=== PATIENT | male | born 1975 | race Caucasian/White ===

== ENCOUNTER → 2019-08-23 07:32 | Outpatient (CLI) | payer OTHER, SELFPAY ==
[2019-08-21 09:29] LABS: Hematocrit 47.1 % (40-54); Hemoglobin 16.1 g/dL (13.0-16.5); Mean Corp Hgb Conc 34.2 g/dL (32-36); Mean Corpuscular Hgb 33.3 pg (27.0-32.0); Mean Corpuscular Volume 97.3 fL (80-94); Mean Platelet Vol. 8.9 fl (6.2-12.0); Platelet Count 307 K/mm3 (150-450); RBC Distribution Width CV 11.9 % (11.6-14.6); RBC Distribution Width SD 42.4 fl (35.1-43.9); Red Blood Count 4.84 M/mm3 (4.6-6.2); White Blood Count 10.4 K/mm3 (4.4-11.0)
[2019-08-21 09:31] LABS: Color, Urine Yellow (Yellow); Glucose, Dipstick Normal (Normal); Ketone-Dipstick Negative (Negative); Leukocyte Esterase-Dipstick Negative /ul (Negative); Nitrite-Dipstick Negative (Negative); Occult Blood-Urine Negative /ul (Negative); Protein-Dipstick Negative (Negative); Specific Gravity, Urine 1.005 (1.002-1.030); Urine Bilirubin Dipstick Negative (Negative); Urine Clarity Clear (Clear); Urine Urobilinogen Normal (Normal)
[2019-08-21 09:56] LABS: BUN 8 mg/dL (7-18); BUN/Creat Ratio 9.2 RATIO (10-20); Creatinine, Serum 0.87 mg/dL (0.70-1.30); EST Glomerular Filtration Rate 100 mL/min (>60); Est Glom Filt Rate - Afr Amer 121 mL/min (>60); Glucose 97 mg/dL (74-106)
[2019-08-21 09:58] LABS: AST(SGOT) 18 U/L (15-37); Alanine Aminotransfer ALT/SGPT 48 U/L (16-61); Albumin, Serum 3.9 g/dL (3.2-5.0); Alkaline Phosphatase 62 U/L (45-117); Calcium,Total 9.2 mg/dL (8.5-10.1)
[2019-08-21 09:59] LABS: Anion Gap 9 (5-15); Chloride 102 mmol/L (98-107); Cholesterol 170 mg/dL (200); High Density Lipoprotein 36 mg/dL; Potassium 4.4 mmol/L (3.5-5.1); Sodium Level 140 mmol/L (136-145); Triglycerides 128 mg/dL; Very Low Density Lipoprotein 26 mg/dL (5-40)
[2019-08-21 10:51] LABS: ALB/GLOB Ratio 1.1 RATIO (0.9-2.4); Globulin 3.6 g/dL (2.2-4.2); Protein, Total 7.5 g/dL (6.4-8.2)
== END ==
LOC: LAB.FUTURE 07:34 → EMPH 09-23 09:37
PROVIDERS: Visit Provider Student in an Organized Health Care Education/Training Program
DX: Z13.6 Encounter for screening for cardiovascular disorders (principal)
CPT/HCPCS: 36415; 80053; 80061; 81002; 85027

== ENCOUNTER → 2020-08-26 | Outpatient (CLI) | payer OTHER, SELFPAY | END | disposition home or self-care (01) | LOC: LABSPEC 07:52 | DX: L02.211 Cutaneous abscess of abdominal wall (principal) | CPT/HCPCS: 87070; 87077; 87186; 87205 ==

== ENCOUNTER → 2021-08-28 | Outpatient (CLI) | payer OTHER, SELFPAY | END | disposition home or self-care (01) | LOC: LABSPEC 15:31 | PROVIDERS: PCP Student in an Organized Health Care Education/Training Program; Visit Provider Nurse Practitioner Family | DX: L05.91 Pilonidal cyst without abscess (principal) | CPT/HCPCS: 87070; 87077; 87186; 87205 ==

== ENCOUNTER → 2021-10-28 | Outpatient (CLI) | payer OTHER, SELFPAY ==
[2021-10-28 13:23] LABS: Red Blood Count 5.21 M/mm3 (4.6-6.2); White Blood Count 8.9 K/mm3 (4.4-11.0)
[2021-10-28 13:27] LABS: Mean Corpuscular Hgb 34.5 pg (27.0-32.0); Mean Corpuscular Volume 107.5 fL (80-94)
[2021-10-28 13:28] LABS: Mean Corp Hgb Conc 32.1 g/dL (32-36); Mean Platelet Vol. 10.3 fl (6.2-12.0); Platelet Count 236 K/mm3 (150-450); RBC Distribution Width CV 13.8 % (11.6-14.6); RBC Distribution Width SD 55.6 fl (35.1-43.9); Scan Indicated on CBC? Y/N NO
[2021-10-28 13:34] LABS: Glucose 111 mg/dL (74-106)
[2021-10-28 13:35] LABS: ALB/GLOB Ratio 0.7 RATIO (0.9-2.4); AST(SGOT) 35 U/L (15-37); Albumin, Serum 3.4 g/dL (3.2-5.0); Alkaline Phosphatase 61 U/L (45-117); BUN 8 mg/dL (7-18); BUN/Creat Ratio 9.9 RATIO (10-20); Calcium,Total 9.2 mg/dL (8.5-10.1); Creatinine, Serum 0.81 mg/dL (0.70-1.30); EST Glomerular Filtration Rate 108 mL/min (>60); Est Glom Filt Rate - Afr Amer 131 mL/min (>60); Globulin 4.7 g/dL (2.2-4.2); Protein, Total 8.1 g/dL (6.4-8.2)
[2021-10-28 13:36] LABS: Alanine Aminotransfer ALT/SGPT 57 U/L (16-61); Chloride 100 mmol/L (98-107); Cholesterol 175 mg/dL (200); Potassium 4.6 mmol/L (3.5-5.1); Sodium Level 134 mmol/L (136-145); Triglycerides 110 mg/dL; Very Low Density Lipoprotein 22 mg/dL (5-40)
[2021-10-28 13:37] LABS: Anion Gap 6 (5-15); High Density Lipoprotein 45 mg/dL; PSA,Total - Annual Screen 1.27 ng/mL (0.00-4.00)
== END | disposition home or self-care (01) ==
LOC: LABSPEC 11-08 08:48
PROVIDERS: Visit Provider Student in an Organized Health Care Education/Training Program
DX: Z13.6 Encounter for screening for cardiovascular disorders (principal)
CPT/HCPCS: 36415; 80053; 80061; 84153; 85027; G0103

== ENCOUNTER → 2022-12-22 | Outpatient (CLI) | payer OTHER, SELFPAY ==
[2022-12-22 08:13] LABS: Hematocrit 47.9 % (40-54); Hemoglobin 15.9 g/dL (13.0-16.5); Mean Corp Hgb Conc 33.2 g/dL (32-36); Mean Corpuscular Hgb 32.6 pg (27.0-32.0); Mean Corpuscular Volume 98.4 fL (80-94); Mean Platelet Vol. 8.5 fl (6.2-12.0); Platelet Count 305 K/mm3 (150-450); RBC Distribution Width CV 11.8 % (11.6-14.6); RBC Distribution Width SD 42.6 fl (35.1-43.9); Red Blood Count 4.87 M/mm3 (4.6-6.2)
[2022-12-22 08:42] LABS: ALB/GLOB Ratio 0.9 RATIO (0.9-2.4); AST(SGOT) 14 U/L (15-37); Alanine Aminotransfer ALT/SGPT 34 U/L (16-61); Albumin, Serum 3.5 g/dL (3.2-5.0); Alkaline Phosphatase 59 U/L (45-117); Anion Gap 2 (5-15); BUN 9 mg/dL (7-18); BUN/Creat Ratio 12.2 RATIO (10-20); Calcium,Total 8.9 mg/dL (8.5-10.1); Chloride 101 mmol/L (98-107); Cholesterol 170 mg/dL (200); Creatinine, Serum 0.74 mg/dL (0.70-1.30); EST Glomerular Filtration Rate 119 mL/min (>60); Est Glom Filt Rate - Afr Amer 144 mL/min (>60); Globulin 4.1 g/dL (2.2-4.2); Glucose 119 mg/dL (74-106); High Density Lipoprotein 38 mg/dL; PSA,Total - Annual Screen 0.45 ng/mL (0.00-4.00); Protein, Total 7.6 g/dL (6.4-8.2); Sodium Level 135 mmol/L (136-145); Triglycerides 81 mg/dL; Very Low Density Lipoprotein 16 mg/dL (5-40)
[2022-12-22 08:44] LABS: Hemoglobin A1c 6.8 % (3.8-5.6)
[2022-12-23 12:20] LABS: Hepatitis C Antibody Non-Reactive (Nonreactive)
== END | disposition home or self-care (01) ==
PROVIDERS: PCP Student in an Organized Health Care Education/Training Program; Referring Provider Student in an Organized Health Care Education/Training Program; Visit Provider Student in an Organized Health Care Education/Training Program
DX: Z13.6 Encounter for screening for cardiovascular disorders (principal); Z11.59 Encounter for screening for other viral diseases; Z12.5 Encounter for screening for malignant neoplasm of prostate
CPT/HCPCS: 36415; 80053; 80061; 83036; 84153; 85027; 86803; G0103

== ENCOUNTER 2023-02-28 08:18 | Day surgery (SDC) | payer OTHER, SELFPAY ==
[2023-02-28] VITALS (7 sets, daily range): BP systolic 110–134; BP diastolic 71–84; PULSE 83–90; RESP 16–22; TEMP 36.5–36.7; O2SAT 93–98; BMI 39.6
--- NOTE | 2023-02-28 | COLBX_PTH ---
PATHOLOGY RESULTS PATIENT: TRIP DAVIS LOC: EN U#:[id number] AGE/SX: 48/M ROOM: RE02/28/[address]: Dr. Darian Gregorio MD : 1975 BED: DIS: 02/28/2023 SPEC #: [id number] RECD: 02/28/23 13:14 STATUS: [facility] #: [id number] BHARATI: 02/28/23 00:[address]: Darian Gregorio DEPT: SURGICAL PATHOLOGY RECD BY: Kenan Martinez ENTERED: 02/28/23 13:15 SP TYPE: COLON BX OTHR DR: Dr. Franki Young, DO Tissues: Descending colon Cecum, NOS Procedures: Surgery Specimen Level IV HEADER OPERATION: Colonoscopy, polypectomy PRE-OP DIAGNOSIS: Positive Cologuard TISSUE SUBMITTED: A - Descending colon polyps x2, B - Cecum polyp MICROSCOPIC DIAGNOSIS A. Descending colon polyps, biopsy: Fragments of tubular adenoma. B. Cecal polyp, biopsy: Fragments of tubular adenoma. AM:milton 03/03/2023 MICROSCOPIC DESCRIPTION Slides are reviewed. GROSS DESCRIPTION A - Received in fixative is one container labeled with the patient's name and designated descending colon polyps. The specimen consists of three variable sized pieces of monae-pink polyp measuring in aggregate 1.5 x 1.0 x 0.4 cm and 0.3 to 1.0 cm in greatest dimension. The specimen is totally submitted in one cassette. B - Received in fixative is one container labeled with the patient's name and designated cecum. The specimen consists of multiple irregular fragments of light monae soft tissue that in aggregate measure 1.0 x 0.5 x 0.1 cm. The specimen is totally submitted in one cassette. / SJ:milton 02/28/2023 TC:5 [facility]: [id number] x2
[2023-02-28] MEDS: Lactated Ringers 1,000 ML 15 ML IV (08:52)
--- NOTE | 2023-02-28 09:10 | HP.PCM_ITS ---
History and Physical Date of Admission: 02/28/23 Intake Vital Signs 12/20/2311:56 Height 6 ft Weight: 312 lb BMI 42.3 BP 127/78 H Blood Pressure Location Rt brachial Position Sitting Respiration 18 Pulse 109 H Pulse Source Monitor Temp 97.6 F L Temp Source Temporal Pulse Oximetry (%) 93 Oxygen Delivery Method room air Intake Visit Reasons: POSITIVE COLOGUARD Chief Complaint: positive cologuard [employer] Required: No Accompanied by: Is patient in pain?: No Allergies No Known Allergies Allergy (Unverified 12/19/22 13:00) Medications cetirizine 10 mg tablet (Zyrtec) 10 mg PO DAILY 12/19/22 [History Confirmed 12/19/22] multivitamin (One Daily Multivitamin tablet) 1 tab PO DAILY 12/19/22 [History Confirmed 12/19/22] PFSH Medical History (Updated 12/19/22 @ 13:[address] Darian Gregorio MD) Positive colorectal cancer screening using Cologuard test Surgical History (Updated 12/19/22 @ 12:55 by Selena Horan) No history of previous surgery Family History Grandfather Colon cancer Social History (Updated 12/19/22 @ 12:56 by Selena Horan) Smoking Status: Never smoker alcohol intake: never substance use type: does not use HPI HPI HPI: Patient had a positive Cologuard. He reports never having a colonoscopy in the past. He denies any abdominal pain or gross blood in the stool. He has no immediate family history of colon cancer. ROS General General: No weight change, appetite, fatigue, colon cancer, breast cancer or weakness HEENT HEENT: No difficulty swallowing, eye injury, eye surgery, swollen glands or hoarseness Endo Endocrine: No thyroid disease, diabetes mellitus, thyroid cancer, Hair loss, heat intolerance or cold intolerance Skin Skin: No rash or changing moles Breast Breast: No left breast lump, right breast lump, nipple discharge, breast pain, abnormal mammogram, abnormal US or breast enlargement Musc Musculoskeletal: No back problems, arthritis, rheumatoid arthritis, gout or joint pain Cardio Cardiovascular: No murmur, pacemaker, heart disease, atrial fibrillation, high blood pressure, heart attack, heart stent, palpitations, shortness of breat with exertion or chest pain Psych Psychiatric: No depression, anxiety or hearing voices Resp Respiratory: No shortness of breath, Yes sleep apnea, No cough, No COPD, Yes asthma, No emphysema and No wheezing Gastro Gastrointestinal: No abdominal pain, No nausea or vomiting, No diarrhea, No constipation, No blood in stool, No acid reflux, No hemorrhoids, No ulcers, No gallbladder problem and No black,tarry stools Omar Hematologic: No blood thinners, No blood disorders, No bleeding, No anemia and No blood clots Neuro Neurologic: No system reviewed and no additional complaints, except as documented, No as per HPI, No abnormal gait, No abnormal hearing, No abnormal movements, No abnormal speech, No behavioral changes, No burning sensations, No confusion, No convulsions, No disequilibrium, No dizziness, No localized weakness, No frequent falls, No headache(s), No lack of coordination, No loss of vision, No memory loss, No numbness, No other visual disturbances, No radicular pain, No restless legs, No sensory deficit, No syncope, No tingling, No tremor(s), No weakness and No other Exam Const General: cooperative Orientation: alert and oriented x3 HENMT Head: normal to inspection Neck Neck: normal visual inspection and full ROM Chest Chest palpation & inspection: normal inspection of the chest Resp Effort & Inspection: normal respiratory effort Auscultation: clear to auscultation bilaterally Cardio Rate: regular rate Rhythm: regular rhythm GI Inspection: non-distended Palpation: soft and nontender Skin General: no rashes or lesions noted Neuro General: patient alert and patient oriented x3 Extrem General: full ROM Psych Appearance: grossly normal Mental Status: mental status grossly normal Assessment and Plan Assessment and Plan (1) Positive colorectal cancer screening using Cologuard test: Status: Acute Plan: Patient had positive Cologuard and requires colonoscopy. I explained endoscopy in detail to the patient. I explained the risks including but not limited to stroke or heart attack with anesthesia, perforation of the GI tract, bleeding, infection. I explained that any of these could necessitate further emergency surgery. The patient understands and all questions were answered sufficiently. The patient wishes to proceed with procedure. Darian Gregorio MD Pager: [facility] [address] [place] [address], [address] [place] [phone] Office: I have examined the patient and the H&P has been reviewed. There are no clinical changes since date of exam.
--- NOTE | 2023-02-28 09:57 | OP.CCLET_ITS ---
02/28/2023 Franki Young, Re : Colonoscopy procedure for George Reynolds Dear Hannah This procedure was performed on Tuesday, February 28, 2023. My impressions and recommendations are as follows: Impressions : - Three medium polyps in the descending colon and in the cecum, removed with a hot snare. Resected and retrieved. - The examination was otherwise normal on direct and retroflexion views. Recommendations : - Discharge patient to home. - Resume previous diet. - Continue present medications. - Await pathology results. - Repeat colonoscopy in 3 years for surveillance of multiple polyps. My findings are described in the full procedure note, which is enclosed. If I can be of further assistance, please feel free to contact me at Doctor phone number(s): , Work: . Sincerely, Darian Gregorio MD 02/28/2023 9:56:51 AM This report has been signed electronically.
--- NOTE | 2023-02-28 09:57 | OP.COLON_ITS ---
Patient Name: George Reynolds Procedure Date: 02/28/2023 9:17 AM Date of : 1975 Age: 48 Procedure: Colonoscopy Indications: Positive Cologuard test Providers: Darian Gregorio MD Medicines: Monitored Anesthesia Care Patient Profile: This is a 48 year old male. Refer to note in patient chart for documentation of history and physical. Last Colonoscopy: none. The patient's first colonoscopy is today. Complications: No immediate complications. Procedure: Pre-Anesthesia Assessment: - Prior to the procedure, a History and Physical was performed, and patient medications and allergies were reviewed. The patient's tolerance of previous anesthesia was also reviewed. The risks and benefits of the procedure and the sedation options and risks were discussed with the patient. All questions were answered, and informed consent was obtained. Prior Anticoagulants: The patient has taken no anticoagulant or antiplatelet agents. After reviewing the risks and benefits, the patient was deemed in satisfactory condition to undergo the procedure. After I obtained informed consent, the scope was passed under direct vision. Throughout the procedure, the patient's blood pressure, pulse, and oxygen saturations were monitored continuously. The colonoscope was introduced through the anus and advanced to the cecum, identified by appendiceal orifice and ileocecal valve. The colonoscopy was performed without difficulty. The patient tolerated the procedure well. The quality of the bowel preparation was good. The ileocecal valve, appendiceal orifice, and rectum were photographed. Scope In: 9:27:10 AM Scope Withdrawal Time 0 hours 7 minutes 59 seconds Scope Out: 9:43:01 AM Total Procedure Duration Time 0 hours 15 minutes 51 seconds Findings: Three pedunculated polyps were found in the descending colon and cecum. The polyps were medium in size. These polyps were removed with a hot snare. Resection and retrieval were complete. Verification of patient identification for the specimen was done. Estimated blood loss was minimal. The exam was otherwise without abnormality on direct and retroflexion views. Impression: - Three medium polyps in the descending colon and in the cecum, removed with a hot snare. Resected and retrieved. - The examination was otherwise normal on direct and retroflexion views. Recommendation: - Discharge patient to home. - Resume previous diet. - Continue present medications. - Await pathology results. - Repeat colonoscopy in 3 years for surveillance of multiple polyps. Procedure Code(s): --- Professional --- 72980, Colonoscopy, flexible; with removal of tumor(s), polyp(s), or other lesion(s) by snare technique Diagnosis Code(s): --- Professional --- D12.4, Benign neoplasm of descending colon D12.0, Benign neoplasm of cecum R19.5, Other fecal abnormalities CPT copyright 2021 [employer]. All rights reserved. The codes documented in this report are preliminary and upon science interpreter review may be revised to meet current compliance requirements. Darian Gregorio MD 02/28/2023 9:56:51 AM This report has been signed electronically. Number of Addenda: 0 Note Initiated On: 02/28/2023 9:17 AM
== END 2023-02-28 10:38 | disposition home or self-care (01) ==
LOC: EN 08:20 → AC 08:21
PROVIDERS: PCP Student in an Organized Health Care Education/Training Program; Referring Provider Student in an Organized Health Care Education/Training Program; Visit Provider Surgery
PROC: 0DJD8ZZ Inspection of Lower Intestinal Tract, Via Natural or Artificial Opening Endoscopic (ICD-10-PCS; CPT 45378; principal; 2023-02-28 09:25)
DX: R19.5 Other fecal abnormalities (principal); K63.5 Polyp of colon; Z80.0 Family history of malignant neoplasm of digestive organs; D12.0 Benign neoplasm of cecum
CPT/HCPCS: 45385; 88305; J7120; J2405

== ENCOUNTER → 2023-04-05 | Outpatient (CLI) | payer OTHER, SELFPAY ==
[2023-04-05 13:08] LABS: Hemoglobin A1c 6.2 % (3.8-5.6)
== END | disposition home or self-care (01) ==
LOC: LAB.FUTURE 13:05
PROVIDERS: PCP Student in an Organized Health Care Education/Training Program; Visit Provider Student in an Organized Health Care Education/Training Program
DX: E11.69 Type 2 diabetes mellitus with other specified complication (principal)
CPT/HCPCS: 36415; 83036

== ENCOUNTER → 2023-06-22 | Outpatient (CLI) | payer OTHER, SELFPAY ==
[2023-06-22 08:58] LABS: Hematocrit 48.1 % (40-54); Hemoglobin 16.1 g/dL (13.0-16.5); Mean Corp Hgb Conc 33.5 g/dL (32-36); Mean Corpuscular Hgb 32.5 pg (27.0-32.0); Mean Platelet Vol. 8.6 fl (6.2-12.0); Platelet Count 224 K/mm3 (150-450); RBC Distribution Width CV 13.9 % (11.6-14.6); RBC Distribution Width SD 49.9 fl (35.1-43.9); Red Blood Count 4.96 M/mm3 (4.6-6.2); White Blood Count 7.6 K/mm3 (4.4-11.0)
[2023-06-22 09:20] LABS: Protein, Urine (Random) 7.9 mg/dL (<11.9); Protein:Creat Ratio 218 mg/g CRE (0-200)
[2023-06-22 09:38] LABS: Hemoglobin A1c 5.7 % (3.8-5.6)
[2023-06-22 09:54] LABS: BUN 9 mg/dL (7-18); Glucose 93 mg/dL (74-106)
[2023-06-22 09:55] LABS: Albumin, Serum 3.6 g/dL (3.2-5.0); BUN/Creat Ratio 13.6 RATIO (10-20); Calcium,Total 8.4 mg/dL (8.5-10.1); Creatinine, Serum 0.66 mg/dL (0.70-1.30); EST Glomerular Filtration Rate 136 mL/min (>60); Est Glom Filt Rate - Afr Amer 165 mL/min (>60); Globulin 3.6 g/dL (2.2-4.2); Protein, Total 7.2 g/dL (6.4-8.2)
[2023-06-22 09:56] LABS: AST(SGOT) 20 U/L (15-37); Alanine Aminotransfer ALT/SGPT 41 U/L (16-61); Alkaline Phosphatase 57 U/L (45-117); Chloride 100 mmol/L (98-107); Cholesterol 162 mg/dL (200); Potassium 4.1 mmol/L (3.5-5.1); Sodium Level 138 mmol/L (136-145); Triglycerides 115 mg/dL; Very Low Density Lipoprotein 23 mg/dL (5-40)
[2023-06-22 09:57] LABS: Anion Gap 8 (5-15); High Density Lipoprotein 43 mg/dL; Thyroid Stim Hormone (TSH) 1.82 uIU/mL (0.358-3.74)
== END | disposition home or self-care (01) ==
LOC: LABSPEC 08:20
PROVIDERS: PCP Student in an Organized Health Care Education/Training Program; Visit Provider Student in an Organized Health Care Education/Training Program
DX: E11.69 Type 2 diabetes mellitus with other specified complication (principal)
CPT/HCPCS: 36415; 80053; 80061; 82570; 83036; 84156; 84443; 85027

== ENCOUNTER → 2023-12-28 | Outpatient (CLI) | payer OTHER, SELFPAY ==
[2023-12-28 09:40] LABS: Hematocrit 53.6 % (40-54); Mean Corp Hgb Conc 34.7 g/dL (32-36); Mean Corpuscular Hgb 34.3 pg (27.0-32.0); Mean Corpuscular Volume 98.7 fL (80-94); Platelet Count 215 K/mm3 (150-450); RBC Distribution Width CV 13.1 % (11.6-14.6); RBC Distribution Width SD 47.8 fl (35.1-43.9); Red Blood Count 5.43 M/mm3 (4.6-6.2)
[2023-12-28 09:43] LABS: Hemoglobin 18.6 g/dL (13.0-16.5)
[2023-12-28 10:35] LABS: Albumin, Serum 3.7 g/dL (3.2-5.0); BUN 7 mg/dL (7-18); BUN/Creat Ratio 8.8 RATIO (10-20); Calcium,Total 8.3 mg/dL (8.5-10.1); EST Glomerular Filtration Rate 109 mL/min (>60); Est Glom Filt Rate - Afr Amer 132 mL/min (>60); Globulin 3.8 g/dL (2.2-4.2); Glucose 104 mg/dL (74-106); Protein, Total 7.5 g/dL (6.4-8.2)
[2023-12-28 10:36] LABS: AST(SGOT) 40 U/L (15-37)
[2023-12-28 10:37] LABS: Alkaline Phosphatase 56 U/L (45-117); Cholesterol 164 mg/dL (200); Potassium 3.9 mmol/L (3.5-5.1); Sodium Level 135 mmol/L (136-145); Triglycerides 112 mg/dL; Very Low Density Lipoprotein 22 mg/dL (5-40)
[2023-12-28 10:38] LABS: Anion Gap 5 (5-15); Chloride 100 mmol/L (98-107); High Density Lipoprotein 55 mg/dL; PSA,Total - Annual Screen 0.74 ng/mL (0.00-4.00)
[2023-12-28 10:39] LABS: Alanine Aminotransfer ALT/SGPT 65 U/L (16-61)
[2023-12-28 10:41] LABS: Hemoglobin A1c 6.1 % (3.8-5.6)
== END | disposition home or self-care (01) ==
LOC: LAB 09:30
PROVIDERS: PCP Student in an Organized Health Care Education/Training Program; Visit Provider Student in an Organized Health Care Education/Training Program
DX: Z13.6 Encounter for screening for cardiovascular disorders (principal); E11.9 Type 2 diabetes mellitus without complications; Z12.5 Encounter for screening for malignant neoplasm of prostate
CPT/HCPCS: 36415; 80053; 80061; 83036; 84153; 84443; 85027; G0103

== ENCOUNTER → 2024-07-01 | Outpatient (CLI) | payer OTHER, SELFPAY ==
[2024-07-01 08:18] LABS: Hematocrit 47.5 % (40-54); Hemoglobin 16.3 g/dL (13.0-16.5); Mean Corp Hgb Conc 34.3 g/dL (32-36); Mean Corpuscular Hgb 31.8 pg (27.0-32.0); Mean Corpuscular Volume 92.8 fL (80-94); Mean Platelet Vol. 8.8 fl (6.2-12.0); Platelet Count 316 K/mm3 (150-450); RBC Distribution Width CV 12.1 % (11.6-14.6); RBC Distribution Width SD 41.7 fl (35.1-43.9); Red Blood Count 5.12 M/mm3 (4.6-6.2); White Blood Count 10.4 K/mm3 (4.4-11.0)
[2024-07-01 11:03] LABS: Protein, Urine (Random) < 6.0 mg/dL (0.0-12.0); Protein:Creat Ratio UNABLE TO CALCULATE mg/g CRE (0-200)
[2024-07-01 12:06] LABS: Hemoglobin A1c 6.8 % (<=5.6)
[2024-07-01 12:08] LABS: ALB/GLOB Ratio 1.4 RATIO (0.9-2.4); AST(SGOT) 19 U/L (<=37); Alanine Aminotransfer ALT/SGPT 32 U/L (<=46); Albumin, Serum 4.4 g/dL (3.5-5.0); Alkaline Phosphatase 60 U/L (40-129); Anion Gap 11 (5-15); BUN 9 mg/dL (4-19); BUN/Creat Ratio 11.1 RATIO (10-20); Calcium,Total 9.5 mg/dL (7.6-11.0); Carbon Dioxide 25.8 mmol/L (21.0-32.0); Chloride 101 mmol/L (98-108); Cholesterol 187 mg/dL (<=200); Creatinine, Serum 0.78 mg/dL (0.70-1.20); EST Glomerular Filtration Rate 108 (>60); Globulin 3.2 g/dL (2.2-4.2); Glucose 111 mg/dL (70-99); High Density Lipoprotein 35 mg/dL; Low Density Lipoprotein Calc. 131 mg/dL; Potassium 4.3 mmol/L (3.3-5.1); Protein, Total 7.6 g/dL (5.9-8.4); Sodium Level 138 mmol/L (133-145); Total Bilirubin 0.63 mg/dL (0.00-1.30); Triglycerides 105 mg/dL; Very Low Density Lipoprotein 21 mg/dL (5-40); cholesterol:hdl ratio screen 5.39
== END | disposition home or self-care (01) ==
LOC: LAB 07:21
PROVIDERS: PCP Student in an Organized Health Care Education/Training Program; Visit Provider Student in an Organized Health Care Education/Training Program
DX: E11.69 Type 2 diabetes mellitus with other specified complication (principal)
CPT/HCPCS: 36415; 80053; 80061; 82570; 83036; 84156; 84443; 85027

== ENCOUNTER → 2024-12-25 | Outpatient (CLI) | payer OTHER, SELFPAY ==
--- OUTSIDE RECORDS SUMMARY | 2024-12-25 10:53 | XMS RPT_ITS | CCD ---
Author Organization [facility] Inform ion Partnership [facility] Care Team Providers Care Frameman Name Role Phone Dr. Darian Gregorio Attending Provider [phone] Dr. Franki Young Primary Care Provider Dr. Franki Young Referring Provider [phone] Dr. Darian Gregorio Other Provider [phone] Franki Young Attending Unavailable Franki Young Primary Care Unavailable Franki Young Attending Unavailable Franki Young Primary Care Unavailable Thong Kilpatrick Attending Unavailable Franki Young Primary Care Unavailable Allergies Allergy Classification Reported Allergen(s) Allergy Type Date of Onset Reaction(s) Facility (2 sources) Latex Propensity to adverse reactions 4 [facility] (1 source) Latex Drug allergy (disorder) [address] [place] [address] Repository Medications Current Medications Medication Drug Class(es) Dates Sig (Normalized) Sig (Original) [id number] 200 actuat albuterol 0.09 mg/actuat metered dose inhaler (2 sources) beta2-Adrenergic Agonist Start: 02-25-2023 take 1 puff(s) by inhalation every four hours Albuterol Sulfate Active 2 PUFF INHALATION Q4H February 25, 2023 12:00am ascorbic acid 1000 mg extended release oral tablet (2 sources) Vitamin C Start: 02-25-2023 take 1 tablet by mouth once daily Ascorbic Acid (Vitamin C) (C Complex) 1,000 mg tablet extended release Active 1000 MG PO DAILY February 25, 2023 12:00am cetirizine hydrochloride 10 mg oral tablet (2 sources) Histamine-1 Receptor Antagonist Start: 12-19-2022 take 1 tablet by mouth once daily Cetirizine (Zyrtec) 10 mg tablet Active 10 MG PO DAILY December 19, 2022 12:00am cholecalciferol 0.025 mg oral capsule (2 sources) Vitamin D Start: 02-25-2023 take 1 capsule by mouth once daily Cholecalciferol (Vitamin D3) (Vitamin D3) 25 mcg (1,000 unit) capsule Active 25 MCG PO DAILY February 25, 2023 12:00am fluticasone propionate 0.05 mg/actuat metered dose nasal spray (2 sources) Corticosteroid Start: 02-25-2023 Fluticasone Propionate Active 1 SPRAY INTRANASAL DAILY February 25, 2023 12:00am Fluticasone Propion-Salmeterol [Fluticasone Propionate 230 Mcg-Salmeterol 21 Mcg/Actuation Hfa Inhaler] (2 sources) Corticosteroid, beta2-Adrenergic Agonist Start: 02-25-2023 Fluticasone Propion-Salmeterol [Fluticasone Propionate 230 Mcg-Salmeterol 21 Mcg/Actuation Hfa Inhaler] (Fluticasone Propionate 230 Mcg-Salmeterol 21 ) 230-21 mcg/actuation HFA aerosol inhaler Active 2 INH INHALATION TWICE A DAY February 25, 2023 12:00am loratadine 10 mg oral tablet (2 sources) Start: 02-25-2023 take 1 tablet by mouth once daily Loratadine (Allerclear) 10 mg tablet Active 10 MG PO DAILY February 25, 2023 12:00am Multivitamin (One Daily Multivitamin) tablet (2 sources) Start: 12-19-2022 take 1 tablet by mouth once daily Multivitamin (One Daily Multivitamin) tablet Active 1 TABLET PO DAILY December 19, 2022 12:00am rosuvastatin calcium 20 mg oral tablet (2 sources) HMG-CoA Reductase Inhibitor Start: 02-25-2023 take 20 mg by mouth once daily Rosuvastatin Active 20 MG PO DAILY February 25, 2023 12:00am Zinc (2 sources) Start: 02-25-2023 take 10 mg by mouth once daily Zinc Active 10 MG PO DAILY February 25, 2023 12:00am Problems Active Problems Problem Classification Problem Date Documented Da te Episodic/Chronic Diabetes mellitus with complications (1 source) Type 2 diabetes mellitus with other specified complication; Translations: [Type 2 diabetes mellitus with other specified complication] Onset: 07-03-2024 Chronic Other gastrointestinal disorders (2 sources) Stool DNA-based colorectal cancer screening positive; Translations: [Other fecal abnormalities] 12-19-2022 Episodic Other gastrointestinal disorders (2 sources) Other fecal abnormalities; Translations: [Abnormal feces] 12-19-2022 Episodic Past or Other Problems Problem Classification Problem Date Documented Date Episodic/Chronic Other screening for suspected conditions (not mental disorders or infectious disease) (1 source) Encounter for screening for cardiovascular disorders; Translations: [Encounter for screening for cardiovascular disorders] Onset: 01-27-2024 Episodic Results Test Name Value Interpretation Reference Range Facility CBC-Complete Blood Cnt No Di ffon 07-01-2024 Erythrocyte distribution width (RBC) [Ratio] 12.1 % Normal 11.6-14.6 [facility] Comment on above: Performed By: #### L 501.0900, L501.9985, L100.0500, L500.4050, L501.9520, L500.4100 #### [facility] [address] [place], [address] Hematocrit (Bld) [Volume fraction] 47.5 % Normal 40-54 [facility] Comment on above: Performed By: #### L 501.0900, L501.9985, L100.0500, L500.4050, L501.9520, L500.4100 #### [facility] [address] [facility] [place], [address] Hemoglobin (Bld) [Mass/Vol] 16.3 g/dL Normal 13.0-16.5 [facility] Comment on above: Performed By: #### L 501.0900, L501.9985, L100.0500, L500.4050, L501.9520, L500.4100 #### [facility] [address] [facility] [place], [address] MCH (RBC) [Entitic mass] 31.8 pg Normal 27.0-32.0 [facility] Comment on above: Performed By: #### L 501.0900, L501.9985, L100.0500, L500.4050, L501.9520, L500.4100 #### [facility] [address] [place], [address] MCHC (RBC) [Mass/Vol] 34.3 g/dL Normal 32-36 [facility] Comment on above: Performed By: #### L 501.0900, L501.9985, L100.0500, L500.4050, L501.9520, L500.4100 #### [facility] [address] [place], [address] MCV (RBC) [Entitic vol] 92.8 fL Normal 80-94 [facility] Comment on above: Performed By: #### L 501.0900, L501.9985, L100.0500, L500.4050, L501.9520, L500.4100 #### [facility] [address] [place], [address] Platelet mean volume (Bld) [Entitic vol] 8.8 fL Normal 6.2-12.0 [facility] Comment on above: Performed By: #### L 501.0900, L501.9985, L100.0500, L500.4050, L501.9520, L500.4100 #### [facility] [address] [place], [address] Platelets (Bld) [#/Vol] 316 10*3/uL Normal 150-450 [facility] Comment on above: Performed By: #### L 501.0900, L501.9985, L100.0500, L500.4050, L501.9520, L500.4100 #### [facility] [address] [place], [address] RBC (Bld) [#/Vol] 5.12 10*6/uL Normal 4.6-6.2 [facility] Comment on above: Performed By: #### L 501.0900, L501.9985, L100.0500, L500.4050, L501.9520, L500.4100 #### [facility] [address] [place], [address] RDW SD 41.7 fl Normal 35.1-43.9 [facility] Comment on above: Performed By: #### L 501.0900, L501.9985, L100.0500, L500.4050, L501.9520, L500.4100 #### [facility] [address] [place], [address] WBC (Bld) [#/Vol] 10.4 10*3/uL Normal 4.4-11.0 [facility] Comment on above: Performed By: #### L 501.0900, L501.9985, L100.0500, L500.4050, L501.9520, L500.4100 #### [facility] [address] [place], [address] Comprehensive Metabolic Prof cton 07-01-2024 Albumin [Mass/Vol] 4.4 g/dL Normal 3.5-5.0 [facility] Comment on above: Performed By: #### L 500.4100, L500.4050, L501.9910, L501.9520, L501.9985, L100.0500, L501.0900 #### [facility] [address] [place], [address] Albumin/Globulin [Mass ratio] 1.4 {ratio} Normal 0.9-2.4 [facility] Comment on above: Performed By: #### L 500.4100, L500.4050, L501.9910, L501.9520, L501.9985, L100.0500, L501.0900 #### [facility] [address] [place], [address] ALK PHOS 60 U/L Normal 40-129 [facility] Comment on above: Performed By: #### L 500.4100, L500.4050, L501.9910, L501.9520, L501.9985, L100.0500, L501.0900 #### [facility] [address] [place], [address] ALT [Catalytic activity/Vol] 32 U/L Normal <=46 [facility] Comment on above: Performed By: #### L 500.4100, L500.4050, L501.9910, L501.9520, L501.9985, L100.0500, L501.0900 #### [facility] [address] [place], [address] AST [Catalytic activity/Vol] 19 U/L Normal <=37 [facility] Comment on above: Performed By: #### L 500.4100, L500.4050, L501.9910, L501.9520, L501.9985, L100.0500, L501.0900 #### [facility] [address] [place], [address] Bilirubin [Mass/Vol] 0.63 mg/dL Normal 0.00-1.30 [facility] Comment on above: Performed By: #### L 500.4100, L500.4050, L501.9910, L501.9520, L501.9985, L100.0500, L501.0900 #### [facility] [address] [place], [address] BUN/CRE 11.1 RATIO Normal 10-20 [facility] Comment on above: Performed By: #### L 500.4100, L500.4050, L501.9910, L501.9520, L501.9985, L100.0500, L501.0900 #### [facility] [address] [place], [address] Calcium [Mass/Vol] 9.5 mg/dL Normal 7.6-11.0 [facility] Comment on above: Performed By: #### L 500.4100, L500.4050, L501.9910, L501.9520, L501.9985, L100.0500, L501.0900 #### [facility] [address] [place], [address] Chloride [Moles/Vol] 101 mmol/L Normal 98-108 [facility] Comment on above: Performed By: #### L 500.4100, L500.4050, L501.9910, L501.9520, L501.9985, L100.0500, L501.0900 #### [facility] [address] [place], [address] CO2 [Moles/Vol] 25.8 mmol/L Normal 21.0-32.0 [facility] Comment on above: Performed By: #### L 500.4100, L500.4050, L501.9910, L501.9520, L501.9985, L100.0500, L501.0900 #### [facility] [address] [place], [address] Creatinine [Mass/Vol] 0.78 mg/dL Normal 0.70-1.20 [facility] Comment on above: Performed By: #### L 500.4100, L500.4050, L501.9910, L501.9520, L501.9985, L100.0500, L501.0900 #### [facility] [address] [place], [address] GAP 11 Normal 5-15 [facility] Comment on above: Performed By: #### L 500.4100, L500.4050, L501.9910, L501.9520, L501.9985, L100.0500, L501.0900 #### [facility] [address] [place], [address] GFR/1.73 sq M.predicted among non-blacks MDRD (S/P/Bld) [Vol rate/Area] 108 mL/min/{1.73_m2} Normal >60 [facility] Comment on above: Result Comment: mL/m in/1.73m2 CKD-EPI Creatinine Equation (2020) Performed By: #### L 500.4100, L500.4050, L501.9910, L501.9520, L501.9985, L100.0500, L501.0900 #### [facility] [address] [place], [address] Globulin (S) [Mass/Vol] 3.2 g/dL Normal 2.2-4.2 [facility] Comment on above: Performed By: #### L 500.4100, L500.4050, L501.9910, L501.9520, L501.9985, L100.0500, L501.0900 #### [facility] [address] [place], [address] Glucose [Mass/Vol] 111 mg/dL High 70-99 [facility] Comment on above: Performed By: #### L 500.4100, L500.4050, L501.9910, L501.9520, L501.9985, L100.0500, L501.0900 #### [facility] [address] [place], [address] Potassium [Moles/Vol] 4.3 mmol/L Normal 3.3-5.1 [facility] Comment on above: Performed By: #### L 500.4100, L500.4050, L501.9910, L501.9520, L501.9985, L100.0500, L501.0900 #### [facility] [address] [place], [address] Sodium [Moles/Vol] 138 mmol/L Normal 133-145 [facility] Comment on above: Performed By: #### L 500.4100, L500.4050, L501.9910, L501.9520, L501.9985, L100.0500, L501.0900 #### [facility] [address] [place], [address] T PROT 7.6 g/dL Normal 5.9-8.4 [facility] Comment on above: Performed By: #### L 500.4100, L500.4050, L501.9910, L501.9520, L501.9985, L100.0500, L501.0900 #### [facility] [address] [place], [place], [id number] Urea nitrogen [Mass/Vol] 9 mg/dL Normal 4-19 [facility] Comment on above: Performed By: #### L 500.4100, L500.4050, L501.9910, L501.9520, L501.9985, L100.0500, L501.0900 #### [facility] [address] [place], [place], [id number] Hemoglobin A1con 07-01-2024 HbA1c (Bld) [Mass fraction] 6.8 % High <=5.6 [facility] Comment on above: Result Comment: Norm al < 5.7 % Prediabetic 5.7 - 6.4 % Diabetic >or= 6.5 % Please note range changes. Performed By: #### L 500.4100, L500.4050, L501.9910, L501.9520, L501.9985, L100.0500, L501.0900 #### [facility] [address] [place], [address] Lipid Profileon 07-01-2024 CHOL:HDL 5.39 Normal [facility] Comment on above: Performed By: #### L 500.4100, L500.4050, L501.9910, L501.9520, L501.9985, L100.0500, L501.0900 #### [facility] [address] [place], [address] Cholesterol [Mass/Vol] 187 mg/dL Normal <=200 [facility] Comment on above: Result Comment: Chol esterol level, Desirable <200 mg/dL Borderline high cholesterol 200-239 mg/dL High cholesterol >=240 mg/dL Recommendations of the NCEP Adult Treatment Panel for the following risk-cutoff thresholds for the [place] population. Performed By: #### L 500.4100, L500.4050, L501.9910, L501.9520, L501.9985, L100.0500, L501.0900 #### [facility] [address] [place], [address] Cholesterol in HDL [Mass/Vol] 35 mg/dL Low [facility] Comment on above: Result Comment: Donna onal Cholesterol Education Program (NCEP) guidelines: <40 mg/dL: Low HDL-cholesterol (major risk factor for CHD) >= 60 mg/dL: High HDL-cholesterol (negative risk factor for CHD) HDL-cholesterol is affected by a number of factors, e.g. smoking, exercise, hormones, sex and age. Performed By: #### L 500.4100, L500.4050, L501.9910, L501.9520, L501.9985, L100.0500, L501.0900 #### [facility] [address] [place], [address] Cholesterol in LDL [Mass/Vol] 131 mg/dL Normal [facility] Comment on above: Result Comment: Bord lfirvt=089-885 mg/dL Higher Vsom=279 mg/dL or greater Performed By: #### L 500.4100, L500.4050, L501.9910, L501.9520, L501.9985, L100.0500, L501.0900 #### [facility] [address] [place], [address] Cholesterol in VLDL [Mass/Vol] 21 mg/dL Normal 5-40 [facility] Comment on above: Performed By: #### L 500.4100, L500.4050, L501.9910, L501.9520, L501.9985, L100.0500, L501.0900 #### [facility] [address] [place], [address] Triglyceride [Mass/Vol] 105 mg/dL Normal [facility] Comment on above: Result Comment: The drugs N-Acetylcysteine and Metamizole may falsely depress this assay. Normal range: <150 mg/dL Borderline High: 150-199 mg/dL High: 200-499 mg/dL Very High: >500 mg/dL Performed By: #### L 500.4100, L500.4050, L501.9910, L501.9520, L501.9985, L100.0500, L501.0900 #### [facility] [address] [place], [address] Protein+Creatinine Ratio,Uri neon 07-01-2024 PROT:CRE RATIO UNABLE TO CALCULATE Normal 0-200 [facility] Comment on above: Performed By: #### L 501.0900, L501.9985, L100.0500, L500.4050, L501.9520, L500.4100 #### [facility] [address] [place], [address] PROTEIN,UR.RAN. < 6.0 Normal 0.0-12.0 [facility] Comment on above: Performed By: #### L 501.0900, L501.9985, L100.0500, L500.4050, L501.9520, L500.4100 #### [facility] [address] [place], [address] UR CREAT 64.60 mg/dL Normal 39.00-259.00 [facility] Comment on above: Performed By: #### L 501.0900, L501.9985, L100.0500, L500.4050, L501.9520, L500.4100 #### [facility] [address] [place], [address] Thyroid Stim Hormone (TSH)on 07-01-2024 TSH 1.640 uIU/mL Normal 0.300-4.200 [facility] Comment on above: Performed By: #### L 500.4100, L500.4050, L501.9910, L501.9520, L501.9985, L100.0500, L501.0900 #### [facility] [address] [place], [address] M100.678on 04-19-2024 M100.678 Pending SARS-CoV-2 (COVID 19) Negative INFLUENZA A Negative INFLUENZA B Negative RSV PCR Negative Normal [facility] Comment on above: Performed By: #### M 100.678 #### [facility] [place], [address] CBC-Complete Blood Cnt No Di ffon 12-28-2023 Hemoglobin (Bld) [Mass/Vol] 18.6 g/dL Invalid Interpretation Code 13.0-16.5 [facility] Comment on above: Performed By: #### L 500.4100, L500.4050, L501.9910, L501.9520, L501.9985, L100.0500, L501.0900 #### [facility] [address] [place], [address] Erythrocyte distribution width (RBC) [Ratio] 13.1 % Normal 11.6-14.6 [facility] Comment on above: Performed By: #### L 500.4100, L500.4050, L501.9910, L501.9520, L501.9985, L100.0500, L501.0900 #### [facility] [address] [place], [address] Hematocrit (Bld) [Volume fraction] 53.6 % Normal 40-54 [facility] Comment on above: Performed By: #### L 500.4100, L500.4050, L501.9910, L501.9520, L501.9985, L100.0500, L501.0900 #### [facility] [address] [place], [address] MCH (RBC) [Entitic mass] 34.3 pg High 27.0-32.0 [facility] Comment on above: Performed By: #### L 500.4100, L500.4050, L501.9910, L501.9520, L501.9985, L100.0500, L501.0900 #### [facility] [address] [place], [address] MCHC (RBC) [Mass/Vol] 34.7 g/dL Normal 32-36 [facility] Comment on above: Performed By: #### L 500.4100, L500.4050, L501.9910, L501.9520, L501.9985, L100.0500, L501.0900 #### [facility] [address] [place], [address] MCV (RBC) [Entitic vol] 98.7 fL High 80-94 [facility] Comment on above: Performed By: #### L 500.4100, L500.4050, L501.9910, L501.9520, L501.9985, L100.0500, L501.0900 #### [facility] [address] [place], [address] Platelet mean volume (Bld) [Entitic vol] 9.0 fL Normal 6.2-12.0 [facility] Comment on above: Performed By: #### L 500.4100, L500.4050, L501.9910, L501.9520, L501.9985, L100.0500, L501.0900 #### [facility] [address] [place], [address] Platelets (Bld) [#/Vol] 215 10*3/uL Normal 150-450 [facility] Comment on above: Performed By: #### L 500.4100, L500.4050, L501.9910, L501.9520, L501.9985, L100.0500, L501.0900 #### [facility] [address] [place], [address] RBC (Bld) [#/Vol] 5.43 10*6/uL Normal 4.6-6.2 [facility] Comment on above: Performed By: #### L 500.4100, L500.4050, L501.9910, L501.9520, L501.9985, L100.0500, L501.0900 #### [facility] [address] [place], [address] RDW SD 47.8 fl High 35.1-43.9 [facility] Comment on above: Performed By: #### L 500.4100, L500.4050, L501.9910, L501.9520, L501.9985, L100.0500, L501.0900 #### [facility] [address] [place], [address] WBC (Bld) [#/Vol] 9.0 10*3/uL Normal 4.4-11.0 [facility] Comment on above: Performed By: #### L 500.4100, L500.4050, L501.9910, L501.9520, L501.9985, L100.0500, L501.0900 #### [facility] [address] [place], [address] Comprehensive Metabolic Prof ilon 12-28-2023 ALT [Catalytic activity/Vol] 65 U/L High 16-61 [facility] Comment on above: Performed By: #### L 500.4100, L500.4050, L501.9910, L501.9520, L501.9985, L100.0500, L501.0900 #### [facility] [address] [place], [address] Chloride [Moles/Vol] 100 mmol/L Normal 98-107 [facility] Comment on above: Performed By: #### L 500.4100, L500.4050, L501.9910, L501.9520, L501.9985, L100.0500, L501.0900 #### [facility] [address] [place], [address] CO2 [Moles/Vol] 30.0 mmol/L Normal 21.0-32.0 [facility] Comment on above: Performed By: #### L 500.4100, L500.4050, L501.9910, L501.9520, L501.9985, L100.0500, L501.0900 #### [facility] [address] [place], [address] GAP 5 Normal 5-15 [facility] Comment on above: Performed By: #### L 500.4100, L500.4050, L501.9910, L501.9520, L501.9985, L100.0500, L501.0900 #### [facility] [address] [place], [address] ALK P 56 U/L Normal 45-117 [facility] Comment on above: Performed By: #### L 500.4100, L500.4050, L501.9910, L501.9520, L501.9985, L100.0500, L501.0900 #### [facility] [address] [place], [address] Bilirubin [Mass/Vol] 1.20 mg/dL High 0.20-1.00 [facility] Comment on above: Result Comment: For patients on eltrombopag therapy, use of Dimension [place] TBIL is not recommended. Performed By: #### L 500.4100, L500.4050, L501.9910, L501.9520, L501.9985, L100.0500, L501.0900 #### [facility] [address] [place], [address] Potassium [Moles/Vol] 3.9 mmol/L Normal 3.5-5.1 [facility] Comment on above: Performed By: #### L 500.4100, L500.4050, L501.9910, L501.9520, L501.9985, L100.0500, L501.0900 #### [facility] [address] [place], [address] Sodium [Moles/Vol] 135 mmol/L Low 136-145 [facility] Comment on above: Performed By: #### L 500.4100, L500.4050, L501.9910, L501.9520, L501.9985, L100.0500, L501.0900 #### [facility] [address] [place], [address] AST [Catalytic activity/Vol] 40 U/L High 15-37 [facility] Comment on above: Performed By: #### L 500.4100, L500.4050, L501.9910, L501.9520, L501.9985, L100.0500, L501.0900 #### [facility] [address] [place], [address] Albumin [Mass/Vol] 3.7 g/dL Normal 3.2-5.0 [facility] Comment on above: Performed By: #### L 500.4100, L500.4050, L501.9910, L501.9520, L501.9985, L100.0500, L501.0900 #### [facility] [address] [place], [address] Albumin/Globulin [Mass ratio] 1.0 {ratio} Normal 0.9-2.4 [facility] Comment on above: Performed By: #### L 500.4100, L500.4050, L501.9910, L501.9520, L501.9985, L100.0500, L501.0900 #### [facility] [address] [place], [address] BUN/CRE 8.8 RATIO Low 10-20 [facility] Comment on above: Performed By: #### L 500.4100, L500.4050, L501.9910, L501.9520, L501.9985, L100.0500, L501.0900 #### [facility] [address] [place], [address] CA,Total 8.3 mg/dL Low 8.5-10.1 [facility] Comment on above: Performed By: #### L 500.4100, L500.4050, L501.9910, L501.9520, L501.9985, L100.0500, L501.0900 #### [facility] [address] [place], [address] Creatinine [Mass/Vol] 0.80 mg/dL Normal 0.70-1.30 [facility] Comment on above: Result Comment: The validity of the calculated GFR GFRAA in patients over 70 years has not been determined. Clinical correlation is essential. Performed By: #### L 500.4100, L500.4050, L501.9910, L501.9520, L501.9985, L100.0500, L501.0900 #### [facility] [address] [place], [address] EST GFR - AA 132 mL/min Normal >60 [facility] Comment on above: Performed By: #### L 500.4100, L500.4050, L501.9910, L501.9520, L501.9985, L100.0500, L501.0900 #### [facility] [address] [place], [address] GFR/1.73 sq M.predicted among non-blacks MDRD (S/P/Bld) [Vol rate/Area] 109 mL/min/{1.73_m2} Normal >60 [facility] Comment on above: Performed By: #### L 500.4100, L500.4050, L501.9910, L501.9520, L501.9985, L100.0500, L501.0900 #### [facility] [address] [place], [address] Globulin (S) [Mass/Vol] 3.8 g/dL Normal 2.2-4.2 [facility] Comment on above: Performed By: #### L 500.4100, L500.4050, L501.9910, L501.9520, L501.9985, L100.0500, L501.0900 #### [facility] [address] [place], [address] Glucose [Mass/Vol] 104 mg/dL Normal 74-106 [facility] Comment on above: Result Comment: Fast ing Glucose result from 100 to 125 mg/dL suggests IMPAIRED HOMEOSTASIS per A.D.A. criteria. Performed By: #### L 500.4100, L500.4050, L501.9910, L501.9520, L501.9985, L100.0500, L501.0900 #### [facility] [address] [place], [address] T PROT 7.5 g/dL Normal 6.4-8.2 [facility] Comment on above: Performed By: #### L 500.4100, L500.4050, L501.9910, L501.9520, L501.9985, L100.0500, L501.0900 #### [facility] [address] [place], [address] Urea nitrogen [Mass/Vol] 7 mg/dL Normal 7-18 [facility] Comment on above: Performed By: #### L 500.4100, L500.4050, L501.9910, L501.9520, L501.9985, L100.0500, L501.0900 #### [facility] [address] [place], [address] Hemoglobin A1con 12-28-2023 HbA1c (Bld) [Mass fraction] 6.1 % High 3.8-5.6 [facility] Comment on above: Result Comment: Norm al < 5.7 % Prediabetic 5.7 - 6.4 % Diabetic >or= 6.5 % Please note range changes. Performed By: #### L 500.4100, L500.4050, L501.9910, L501.9520, L501.9985, L100.0500, L501.0900 #### [facility] [address] [place], [address] Lipid Profileon 12-28-2023 Cholesterol in HDL [Mass/Vol] 55 mg/dL Normal [facility] Comment on above: Result Comment: The drugs N-Acetylcysteine and Metamizole may falsely depress this assay. Reference Range HDL <40 mg/dL Low HDL Cholesterol HDL >or= 60 mg/dL High HDL Cholesterol Performed By: #### L 500.4100, L500.4050, L501.9910, L501.9520, L501.9985, L100.0500, L501.0900 #### [facility] [address] [place], [address] Cholesterol in LDL [Mass/Vol] 87 mg/dL Normal 0-130 [facility] Comment on above: Performed By: #### L 500.4100, L500.4050, L501.9910, L501.9520, L501.9985, L100.0500, L501.0900 #### [facility] [address] [place], [place], [phone] Cholesterol [Mass/Vol] 164 mg/dL Normal 200 [facility] Comment on above: Result Comment: <200 mg/dL Desirable 200-240 mg/dL Borderline >240 mg/dL High Risk Performed By: #### L 500.4100, L500.4050, L501.9910, L501.9520, L501.9985, L100.0500, L501.0900 #### [facility] [address] [place], [address] [phone] Cholesterol in VLDL [Mass/Vol] 22 mg/dL Normal 5-40 [facility] Comment on above: Performed By: #### L 500.4100, L500.4050, L501.9910, L501.9520, L501.9985, L100.0500, L501.0900 #### [facility] [address] [place], [address] [phone] Triglyceride [Mass/Vol] 112 mg/dL Normal [facility] Comment on above: Result Comment: The drugs N-Acetylcysteine and Metamizole may falsely depress this assay. Serum Triglycerides Reference Interval Normal <150 mg/dL Borderline high 150 - 199 mg/dL High 200 - 499 mg/dL Very High > or = 500 mg/dL Performed By: #### L 500.4100, L500.4050, L501.9910, L501.9520, L501.9985, L100.0500, L501.0900 #### [facility] [address] [place], [address] PSA,Total - Annual Screenon 12-28-2023 PSA,TOT SCREEN 0.74 ng/mL Normal 0.00-4.00 [facility] Comment on above: Result Comment: This test was performed using the TPSA assay method for the Dimension chemistry system. Values obtained with different assay methods cannot be used interchangably. When changing PSA assays in the course of monitoring a patient, additional sequential testing should be carried out to confirm baseline values. Performed By: #### L 500.4100, L500.4050, L501.9910, L501.9520, L501.9985, L100.0500, L501.0900 #### [facility] [address] [place], [address] Protein+Creatinine Ratio,Uri neon 12-28-2023 PROT:CRE RATIO Normal 0-200 [facility] Comment on above: Result Comment: PT R EQUEST Performed By: #### L 500.4100, L500.4050, L501.9910, L501.9520, L501.9985, L100.0500, L501.0900 #### [facility] [address] [place], [address] PROTEIN,UR.RAN. Normal <11.9 [facility] Comment on above: Result Comment: PT R EQUEST Performed By: #### L 500.4100, L500.4050, L501.9910, L501.9520, L501.9985, L100.0500, L501.0900 #### [facility] [address] [place], [address] UR CREAT Normal NO RANGE EST. [facility] Comment on above: Result Comment: PT R EQUEST Performed By: #### L 500.4100, L500.4050, L501.9910, L501.9520, L501.9985, L100.0500, L501.0900 #### [facility] [address] [place], [address] Thyroid Stim Hormone (TSH)on 12-28-2023 TSH 2.170 uIU/mL Normal 0.358-3.740 [facility] Comment on above: Performed By: #### L 500.4100, L500.4050, L501.9910, L501.9544, L501.9985, L100.0500, L501.0900 #### [facility] [place], [address] Whole blood hemoglobin A1c/t otal hemoglobin ratio (mass fraction)Ordered By: Franki Young on 04-05-2023 HbA1c (Bld) [Mass fraction] 6.2 % 3.8-5.6 [facility] Comment on above: Normal < 5.7 % Predi abetic 5.7 - 6.4 % Diabetic >or= 6.5 % Please note range changes. Basophil percentageOrdered B y: Franki Young on 12-22-2022 Bilirubin [Mass/Vol] 0.50 mg/dL 0.20-1.00 [facility] Comment on above: For patients on eltr ombopag therapy, use of Dimension [place] TBIL is not recommended. Chloride [Moles/Vol] 101 mmol/L 98-107 [facility] Cholesterol [Mass/Vol] 170 mg/dL <200 [facility] Comment on above: <200 mg/dL Desirable 200-240 mg/dL Borderline >240 mg/dL High Risk Glucose [Mass/Vol] 119 mg/dL 74-106 [facility] Comment on above: Fasting Glucose resu lt from 100 to 125 mg/dL suggests IMPAIRED HOMEOSTASIS per A.D.A. criteria. Potassium [Moles/Vol] 4.0 mmol/L 3.5-5.1 [facility] Protein [Mass/Vol] 7.6 g/dL 6.4-8.2 [facility] Sodium [Moles/Vol] 135 mmol/L 136-145 [facility] Triglyceride [Mass/Vol] 81 mg/dL <199 [facility] Comment on above: The drugs N-Acetylcy steine and Metamizole may falsely depress this assay.Serum Triglycerides Reference Interval Normal <150 mg/dL Borderline high 150 - 199 mg/dL High 200 - 499 mg/dL Very High > or = 500 mg/dL WBC (Bld) [#/Vol] 10.0 10*3/uL 4.4-11.0 [facility] Blood erythrocytes count (nu mber/volume)Ordered By: Franki Young on 12-22-2022 RBC (Bld) [#/Vol] 4.87 10*6/uL 4.6-6.2 [facility] Blood hemoglobin measurement (mass/volume)Ordered By: Franki Young on 12-22-2022 Hemoglobin (Bld) [Mass/Vol] 15.9 g/dL 13.0-16.5 [facility] Blood platelet mean volumeOr dered By: Franki Young on 12-22-2022 Platelet mean volume (Bld) [Entitic vol] 8.5 fL 6.2-12.0 [facility] Determination of erythrocyte mean corpuscular volume (MCV)Ordered By: Franki Young on 12-22-2022 MCV (RBC) [Entitic vol] 98.4 fL 80-94 [facility] Hematocrit Auto (Bld) [Volum e fraction]Ordered By: Franki Young on 12-22-2022 Hematocrit (Bld) [Volume fraction] 47.9 % 40-54 [facility] - Chemistry and C hemistry - challengeOrdered By: Franki Young on 12-22-2022 ALP [Catalytic activity/Vol] 59 U/L 45-117 [facility] ALT [Catalytic activity/Vol] 34 U/L 16-61 [facility] CO2 [Moles/Vol] 32.0 mmol/L 21.0-32.0 [facility] Globulin (S) [Mass/Vol] 4.1 g/dL 2.2-4.2 [facility] Urea nitrogen/Creatinine [Mass ratio] 12.2 mg/mg 10-20 [facility] - Hematology and Cell countsOrdered By: Franki Young on 12-22-2022 Erythrocyte distribution width (RBC) [Entitic vol] 42.6 fL 35.1-43.9 [facility] Erythrocyte distribution width (RBC) [Ratio] 11.8 % 11.6-14.6 [facility] MCH (RBC) [Entitic mass] 32.6 pg 27.0-32.0 [facility] MCHC Auto (RBC) [Mass/Vol]Or dered By: Franki Young on 12-22-2022 MCHC (RBC) [Mass/Vol] 33.2 g/dL 32-36 [facility] No Panel InformationOrdered By: Franki Young on 12-22-2022 Estimated GFR (MDRD) Amer 144 mL/min >60 [facility] Comment on above: GFR Calc Estimated GFR (MDRD) Non-Af Amer 119 mL/min >60 [facility] Comment on above: Non- GFR Calc Hepatitis C Antibody Non-Reactive Nonreactive [facility] Comment on above: Non Reactive: < 0.8 Equivocal: >/= 0.8 to < 1.0 Reactive: >/= 1.0The CDC recommends that a reactive/equivocal HCV antibody result be followed up by the HCV Nucleic Acid Amplificationtest (702505) Prostate Specific Antigen Screen 0.45 ng/mL 0.00-4.00 [facility] Comment on above: This test was perfor med using the TPSA assay method for [employer] chemistry system. Values obtained with differentassay methods cannot be used interchangably.When changing PSA assays in the course of monitoring apatient, additional sequential testing should be carriedout to confirm baseline values. Platelets bldOrdered By: Sylvester Young on 12-22-2022 Platelets (Bld) [#/Vol] 305 10*3/uL 150-450 [facility] Serum or plasma albumin elidia urement (mass/volume)Ordered By: Franki Young on 12-22-2022 Albumin [Mass/Vol] 3.5 g/dL 3.2-5.0 [facility] Serum or plasma albumin/glob ulin mass ratioOrdered By: Franki Young on 12-22-2022 Albumin/Globulin [Mass ratio] 0.9 {ratio} 0.9-2.4 [facility] Serum or plasma calcium elidia urement (mass/volume)Ordered By: Franki Young on 12-22-2022 Calcium [Mass/Vol] 8.9 mg/dL 8.5-10.1 [facility] Serum or plasma cholesterol in HDL measurement (mass/volume)Ordered By: Franki Young on 12-22-2022 Cholesterol in HDL [Mass/Vol] 38 mg/dL >40 [facility] Comment on above: The drugs N-Acetylcy steine and Metamizole may falsely depress this assay. Reference Range HDL <40 mg/dL Low HDL Cholesterol HDL >or= 60 mg/dL High HDL Cholesterol Serum or plasma cholesterol in VLDL measurement (mass/volume)Ordered By: Franki Young on 12-22-2022 Cholesterol in VLDL [Mass/Vol] 16 mg/dL 5-40 [facility] Serum or plasma creatinine m easurement (mass/volume)Ordered By: Franki Young on 12-22-2022 Creatinine [Mass/Vol] 0.74 mg/dL 0.70-1.30 [facility] Comment on above: The validity of the calculated GFR & GFRAA in patients over 70 years has not been determined. Clinical correlation is essential. Serum or plasma low density lipoprotein (LDL) cholesterol measurement (mass/volume)Ordered By: Franki Young on 12-22-2022 Cholesterol in LDL [Mass/Vol] 116 mg/dL 0-130 [facility] Serum or plasma urea nitroge n measurement (mass/volume)Ordered By: Franki Young on 12-22-2022 Urea nitrogen [Mass/Vol] 9 mg/dL 7-18 [facility] Thin prep Papanicolaou smear with manual screeningOrdered By: Franki Young on 12-22-2022 Thin prep Papanicolaou smear with manual screening 14 U/L 15-37 [facility] Thin prep Papanicolaou smear with manual screening 2 5-15 [facility] Whole blood hemoglobin A1c/t otal hemoglobin ratio (mass fraction)Ordered By: Franki Young on 12-22-2022 HbA1c (Bld) [Mass fraction] 6.8 % 3.8-5.6 [facility] Comment on above: Normal < 5.7 % Predi abetic 5.7 - 6.4 % Diabetic >or= 6.5 % Please note range changes. Basophil percentageon 2021 Bilirubin [Mass/Vol] 0.70 mg/dL 0.20-1.00 [facility] Work Phone: Comment on above: For patients on eltr ombopag therapy, use of Dimension [place] TBIL is not recommended. Chloride [Moles/Vol] 100 mmol/L 98-107 [facility] Work Phone: Cholesterol [Mass/Vol] 175 mg/dL <200 [facility] Work Phone: Comment on above: <200 mg/dL Desirable 200-240 mg/dL Borderline >240 mg/dL High Risk Glucose [Mass/Vol] 111 mg/dL 74-106 [facility] Work Phone: [phone] Comment on above: Fasting Glucose resu lt from 100 to 125 mg/dL suggests IMPAIRED HOMEOSTASIS per A.D.A. criteria. Potassium [Moles/Vol] 4.6 mmol/L 3.5-5.1 [facility] Work Phone: [phone] Protein [Mass/Vol] 8.1 g/dL 6.4-8.2 [facility] Work Phone: [phone] Sodium [Moles/Vol] 134 mmol/L 136-145 [facility] Work Phone: [phone] Triglyceride [Mass/Vol] 110 mg/dL <199 [facility] Work Phone: [phone] Comment on above: The drugs N-Acetylcy steine and Metamizole may falsely depress this assay.Serum Triglycerides Reference Interval Normal <150 mg/dL Borderline high 150 - 199 mg/dL High 200 - 499 mg/dL Very High > or = 500 mg/dL WBC (Bld) [#/Vol] 8.9 10*3/uL 4.4-11.0 [facility] Work Phone: [phone] Blood erythrocytes count (nu mber/volume)on 10-28-2021 RBC (Bld) [#/Vol] 5.21 10*6/uL 4.6-6.2 [facility] Work Phone: [phone] Blood hemoglobin measurement (mass/volume)on 10-28-2021 Hemoglobin (Bld) [Mass/Vol] 18.0 g/dL 13.0-16.5 [facility] Work Phone: [phone] Blood platelet mean volumeon 10-28-2021 Platelet mean volume (Bld) [Entitic vol] 10.3 fL 6.2-12.0 [facility] Work Phone: [phone] Determination of erythrocyte mean corpuscular volume (MCV)on 10-28-2021 MCV (RBC) [Entitic vol] 107.5 fL 80-94 [facility] Work Phone: [phone] Hematocrit Auto (Bld) [Volum e fraction]on 10-28-2021 Hematocrit (Bld) [Volume fraction] 56.0 % 40-54 [facility] Work Phone: [phone] Laboratory - Chemistry and C hemistry - challengeon 10-28-2021 ALP [Catalytic activity/Vol] 61 U/L 45-117 [facility] Work Phone: [phone] ALT [Catalytic activity/Vol] 57 U/L 16-61 [facility] Work Phone: [phone] CO2 [Moles/Vol] 28.0 mmol/L 21.0-32.0 [facility] Work Phone: [phone] Globulin (S) [Mass/Vol] 4.7 g/dL 2.2-4.2 [facility] Work Phone: [phone] Urea nitrogen/Creatinine [Mass ratio] 9.9 mg/mg 10-20 [facility] Work Phone: [phone] Laboratory - Hematology and Cell countson 10-28-2021 Erythrocyte distribution width (RBC) [Entitic vol] 55.6 fL 35.1-43.9 [facility] Work Phone: [phone] Erythrocyte distribution width (RBC) [Ratio] 13.8 % 11.6-14.6 [facility] Work Phone: [phone] MCH (RBC) [Entitic mass] 34.5 pg 27.0-32.0 [facility] Work Phone: [phone] MCHC Auto (RBC) [Mass/Vol]on 10-28-2021 MCHC (RBC) [Mass/Vol] 32.1 g/dL 32-36 [facility] Work Phone: [phone] No Panel Informationon 10-28 Estimated GFR (MDRD) Amer 131 mL/min >60 [facility] Work Phone: [phone] Estimated GFR (MDRD) Non-Af Amer 108 mL/min >60 [facility] Work Phone: [phone] Prostate Specific Antigen Screen 1.27 ng/mL 0.00-4.00 [facility] Work Phone: Comment on above: This test was perfor med using the TPSA assay method [facility]. Values obtained with differentassay methods cannot be used interchangably.When changing PSA assays in the course of monitoring apatient, additional sequential testing should be carriedout to confirm baseline values. Platelets bldon 10-28-2021 Platelets (Bld) [#/Vol] 236 10*3/uL 150-450 [facility] Work Phone: Serum or plasma albumin elidia urement (mass/volume)on 10-28-2021 Albumin [Mass/Vol] 3.4 g/dL 3.2-5.0 [facility] Work Phone: Serum or plasma albumin/glob ulin mass ratioon 10-28-2021 Albumin/Globulin [Mass ratio] 0.7 {ratio} 0.9-2.4 [facility] Work Phone: Serum or plasma calcium elidia urement (mass/volume)on 10-28-2021 Calcium [Mass/Vol] 9.2 mg/dL 8.5-10.1 [facility] Work Phone: Serum or plasma cholesterol in HDL measurement (mass/volume)on 10-28-2021 Cholesterol in HDL [Mass/Vol] 45 mg/dL >40 [facility] Work Phone: Comment on above: The drugs N-Acetylcy steine and Metamizole may falsely depress this assay. Reference Range HDL <40 mg/dL Low HDL Cholesterol HDL >or= 60 mg/dL High HDL Cholesterol Serum or plasma cholesterol in VLDL measurement (mass/volume)on 10-28-2021 Cholesterol in VLDL [Mass/Vol] 22 mg/dL 5-40 [facility] Work Phone: Serum or plasma creatinine m easurement (mass/volume)on 10-28-2021 Creatinine [Mass/Vol] 0.81 mg/dL 0.70-1.30 [facility] Work Phone: Comment on above: The validity of the calculated GFR & GFRAA in patients over 70 years has not been determined. Clinical correlation is essential. Serum or plasma low density lipoprotein (LDL) cholesterol measurement (mass/volume)on 10-28-2021 Cholesterol in LDL [Mass/Vol] 108 mg/dL 0-130 [facility] Work Phone: Serum or plasma urea nitroge n measurement (mass/volume)on 10-28-2021 Urea nitrogen [Mass/Vol] 8 mg/dL 7-18 [facility] Work Phone: Thin prep Papanicolaou smear with manual screeningon 10-28-2021 Thin prep Papanicolaou smear with manual screening 35 U/L 15-37 [facility] Work Phone: Thin prep Papanicolaou smear with manual screening 6 5-15 [facility] Work Phone: Bacteria identified Cx Nom ( Wound) Wound Culture Actinomyces naeslundii [facility] Work Phone: Wound Culture Strep anginosus [facility] Work Phone: Wound Culture Negative [facility] Work Phone: Wound Culture Corynebacterium amycolatum [facility] Work Phone: Gram stain for investigation of transfusion reaction Microscopic observation Gram stain Nom (Unsp spec) [facility] Work Phone: Vital Signs Date Time Vital Sign Value Performing Clinician Faci lity 02-28-2023 10:17-0500 Body temperature 98 [degF] Dr. Franki Young Work Phone: [facility] 02-28-2023 10:17-0500 Diastolic blood pressure 84 mm[Hg] Dr. Franki Young Work Phone: [facility] 02-28-2023 10:17-0500 Heart rate 83 /min Dr. Franki Young Work Phone: [facility] 02-28-2023 10:17-0500 Respiratory rate 18 /min Dr. Franki Young Work Phone: [facility] 02-28-2023 10:17-0500 SaO2% (BldA) [Mass fraction] 98 % Dr. Franki Young Work Phone: [facility] 02-28-2023 10:17-0500 Systolic blood pressure 134 mm[Hg] Dr. Franki Young Work Phone: [facility] 02-28-2023 10:00-0500 Inhaled oxygen flow rate 2 L/min Dr. Franki Young Work Phone: [facility] 02-28-2023 08:53-0500 Body height 182.[address] Franki Young Work Phone: [phone] [place] [address] 02-28-2023 08:53-0500 Body mass index (BMI) [Ratio] 39.6 kg/m2 Dr. Franki Young Work Phone: [facility] 02-28-2023 08:53-0500 Body weight 132.[address] Franki Young Work Phone: [facility] 12-19-2022 12:56-0500 Body mass index (BMI) [Ratio] 42.3 kg/m2 Dr. Franki Young Work Phone: [facility] 12-19-2022 12:56-0500 Body temperature 97.6 [degF] Dr. Franki Young Work Phone: [facility] 12-19-2022 12:56-0500 Body weight 141.[address] Franki Young Work Phone: [facility] 12-19-2022 12:56-0500 Diastolic blood pressure 78 mm[Hg] Dr. Franki Young Work Phone: [facility] 12-19-2022 12:56-0500 Heart rate 109 /min Dr. Franki Young Work Phone: [facility] 12-19-2022 12:56-0500 Respiratory rate 18 /min Dr. Franki Young Work Phone: [facility] 12-19-2022 12:56-0500 SaO2% (BldA) [Mass fraction] 93 % Dr. Franki Young Work Phone: [facility] 12-19-2022 12:56-0500 Systolic blood pressure 127 mm[Hg] Dr. Franki Young Work Phone: [facility] Encounters Encounter Date Encounter Type Care Provider Facility Start: 07-01-2024 End: 07-01-2024 ambulatory Franki Young Facility:[facility] Start: 04-19-2024 ambulatory Thong Shoemaker ty:[facility] Start: 12-28-2023 End: 12-28-2023 ambulatory Franki Hannah Facility:[facility] Start: 04-05-2023 End: 04-05-[address] Franki Young Work Phone: [facility] Work Phone: Start: 04-05-2023 End: 04-05-[address] Franki Young Work Phone: [facility]-Laboratory,Fut ure Work Phone: Start: 02-28-2023 Non-patient / Non-visit Dr. Merry Young Work Phone: [facility] Start: 02-28-2023 End: 02-28-2023 Admission to same day surgery center Dr. Franki Young Work Phone: [facility]-Endoscopy Work Phone: Start: 02-28-2023 End: 02-28-[address] Franki Young Work Phone: [facility] Work Phone: Start: 12-22-2022 End: 12-22-[address] Franki Young Work Phone: [facility]Laboratory Work Phone: Start: 12-19-2022 End: 12-19-[address] Franki Young Work Phone: [facility] Work Phone: Start: 10-28-2021 End: 10-28-2021 ambulatory [facility] Work Phone: Start: 10-28-2021 End: 10-28-2021 Patient encounter procedure [facility]Laboratory, Specimen Start: 08-28-2021 End: 08-28-2021 Patient encounter procedure [facility], Specimen Procedures Date Procedure Procedure Detail Performing Clinician Start: 02-28-[address] Ofelia Young Work Phone: Investigation of transfusion reaction Microbial culture, routine Plan of Treatment Date Care Activity Detail Author Start: 02-28-2023 Colsc flx w/rmvl of tumor polyp lesion snare tq COLONOSCOPY W/LESION REMOVAL [facility] Start: 02-28-2023 Patient discharge [facility] Colonoscopy [facility] Patient referral [facility] Work Phone: Immunizations Immunization Date Immunization Notes Care Provider Cong gil 11-18-2022 influenza, injectabl e, quadrivalent, preservative free Dr. Franki Young Work Phone: [facility] 12-31-2021 influenza, injectabl e, quadrivalent, preservative free Dr. Franki Young Work Phone: [facility] 12-13-2020 influenza, injectabl e, quadrivalent, preservative free Dr. Franki Young Work Phone: [facility] 12-13-2020 influenza, seasonal, injectable [facility] Work Phone: 01-03-2020 influenza, injectabl e, quadrivalent, preservative free Dr. Franki Young Work Phone: [facility] 01-03-2020 influenza, seasonal, injectable [facility] Work Phone: 01-04-2019 influenza, injectabl e, quadrivalent, preservative free Dr. Franki Young Work Phone: [facility] 01-04-2019 influenza, seasonal, injectable [facility] Work Phone: 11-24-2017 influenza, injectabl e, quadrivalent, preservative free Dr. Franki Young Work Phone: [facility] 11-24-2017 influenza, seasonal, injectable [facility] Work Phone: 11-06-2016 influenza, injectabl e, quadrivalent, preservative free Dr. Franki Young Work Phone: [facility] 11-06-2016 influenza, seasonal, injectable [facility] Work Phone: 12-20-2015 influenza, injectabl e, quadrivalent, preservative free Dr. Franki Young Work Phone: [facility] 12-20-2015 influenza, seasonal, injectable [facility] Work Phone: 11-10-2014 influenza, injectabl e, quadrivalent, preservative free Dr. Franki Young Work Phone: [facility] 11-10-2014 influenza, seasonal, injectable [facility] Work Phone: 11-09-2013 influenza, injectabl e, quadrivalent, preservative free Dr. Franki Young Work Phone: [facility] 11-09-2013 influenza, seasonal, injectable [facility] Work Phone: 01-04-2013 Influenza virus vaccine [facility] Payers Date Payer Category Payer Self-pay [id number] 2023 Unknown [id number] Unknown [id number] Unknown [id number] Unknown [id number] Social History Date Type Detail [facility] Work Phone: Start: 1975 Sex Assigned At Male [facility] Start: 02-25-2023 [facility] Goals Date Patient Goal Desired Activity /State Mental Status Date Assessment Result Facility 02-28-2023 Cognitive function Voice/Name [facility] Work Phone: Procedure note 02-28-2023 Note Date & Type Note Facility 02-28-2023 Procedure note [facility] Procedure note 02-28-2023 Note Date & Type Note Facility 02-28-2023 Procedure note [facility] Evaluation note Note Date & Type Note Facility Evaluation note No assessment information availa ble [facility] Work Phone: Evaluation note Note Date & Type Note Facility Evaluation note Diagnosis Onset Date Positive colorectal cancer s creening using Cologuard test acute [facility] Work Phone: History and physical note Note Date & Type Note Facility History and physical note Note Date/Time February 28, 2023 9:11am [facility] Medical Records Department [address] [place] [address] History & Physical Exam 02/28/23 0910 MR#: [id number] Acct: [id number] Name: TRIP DAVIS Rep #:[id number] : 1975 48 From: Darian henson MD PCP: Dr. Franki Young, DO Status:[facility] Location: [place] [address] History and Physical Date of Admission: 02/28/23 Intake Vital Signs 12/20/2311:56 Height 6 ft Weight: 312 lb BMI 42.3 BP 127/78 H Blood Pressure Location Rt brachial Position Sitting Respiration 18 Pulse 109 H Pulse Source Monitor Temp 97.6 F L Temp Source Temporal Pulse Oximetry (%) 93 Oxygen Delivery Method room air Intake Visit Reasons: POSITIVE COLOGUARD Chief Complaint: positive cologuard Director Of Collections Required: No Accompanied by: Is patient in pain?: No Allergies No Known Allergies Allergy (Unverified 12/19/22 13:00) Medications cetirizine 10 mg tablet (Zyrtec) 10 mg PO DAILY 12/19/22 [History Confirmed 12/19/22] multivitamin (One Daily Multivitamin tablet) 1 tab PO DAILY 12/19/22 [History Confirmed 12/19/22] PFSH Medical History (Updated 12/19/22 @ 13:[address] Darian Gregorio MD) Positive colorectal cancer screening using Cologuard test Surgical History (Updated 12/19/22 @ 12:55 by Selena Horan) No history of previous surgery Family History Grandfather Colon cancer Social History (Updated 12/19/22 @ 12:56 by Selena Horan) Smoking Status: Never smoker alcohol intake: never substance use type: does not use HPI HPI HPI: Patient had a positive Cologuard. He reports never having a colonoscopy in the past. He denies any abdominal pain or gross blood in the stool. He has no immediate family history of colon cancer. ROS General General: No weight change, appetite, fatigue, colon cancer, breast cancer or weakness HEENT HEENT: No difficulty swallowing, eye injury, eye surgery, swollen glands or hoarseness Endo Endocrine: No thyroid disease, diabetes mellitus, thyroid cancer, Hair loss, heat intolerance or cold intolerance Skin Skin: No rash or changing moles Breast Breast: No left breast lump, right breast lump, nipple discharge, breast pain, abnormal mammogram, abnormal US or breast enlargement Musc Musculoskeletal: No back problems, arthritis, rheumatoid arthritis, gout or joint pain Cardio Cardiovascular: No murmur, pacemaker, heart disease, atrial fibrillation, high blood pressure, heart attack, heart stent, palpitations, shortness of breat withexertion or chest pain Psych Psychiatric: No depression, anxiety or hearing voices Resp Respiratory: No shortness of breath, Yes sleep apnea, No cough, No COPD, Yes asthma, No emphysema and No wheezing Gastro Gastrointestinal: No abdominal pain, No nausea or vomiting, No diarrhea, No constipation, No blood in stool, No acid reflux, No hemorrhoids, No ulcers, No gallbladder problem and No black,tarry stools Omar Hematologic: No blood thinners, No blood disorders, No bleeding, No anemia and No blood clots Neuro Neurologic: No system reviewed and no additional complaints, except as documented, No as per HPI, No abnormal gait, No abnormal hearing, No abnormal movements, No abnormal speech, No behavioral changes, No burning sensations, No confusion, No convulsions, No disequilibrium, No dizziness, No localized weakness, No frequent falls, No headache(s), No lack of coordination, No loss ofvision, No memory loss, No numbness, No other visual disturbances, No radicular pain, No restless legs, No sensory deficit, No syncope, No tingling, No tremor(s), No weakness and No other Exam Const General: cooperative Orientation: alert and oriented x3 HENOH Head: normal to inspection Neck Neck: normal visual inspection and full ROM Chest Chest palpation & inspection: normal inspection of the chest Resp Effort & Inspection: normal respiratory effort Auscultation: clear to auscultation bilaterally Cardio Rate: regular rate Rhythm: regular rhythm GI Inspection: non-distended Palpation: soft and nontender Skin General: no rashes or lesions noted Neuro General: patient alert and patient oriented x3 Extrem General: full ROM Psych Appearance: grossly normal Mental Status: mental status grossly normal Assessment and Plan Assessment and Plan (1) Positive colorectal cancer screening using Cologuard test: Status: Acute Plan: Patient had positive Cologuard and requires colonoscopy. I explained endoscopy in detail to the patient. I explained the risks including but not limited to stroke or heart attack with anesthesia, perforation of the GI tract, bleeding, infection. I explained that any of these could necessitate further emergency surgery. The patient understands and all questions were answered sufficiently. The patient wishes to proceed with procedure. Darian Gregorio MD Pager: [facility] [address] [place] [address], [address] [place] [address] Office: I have examined the patient and the H&P has been reviewed. There are no clinicalchanges since date of exam. 02/28/23 0911 <Electronically signed by Darian Gregorio MD> Cosigner Signature (if applicable): CC: Dr. Darian Gregorio MD; Dr. Franki Young DO~ Signed [facility] Work Phone: Chief Complaint and Reason for Visit Chief Complaint WILL BRING ORDER ANNUAL LABS Chief Complaint POSITIVE COLOGUARD Reason for Visit Positive colorectal cancer screening using Cologuard test Advance Directives No Advanced Directives Records Found Advance Directive Response Recorded Date/ Time Living Will No February 25 10:49am Power of Secretary No February 25, 2023 10:49am Summary Purpose Family History No Family History Records Found Additional Source Comments Goals (unrecognized section and content) Goals may be documented in a n alternate section Care Teams (unrecognized sec tion and content) Team Status: Active Member Role Status Dates Dr. Franki Young DO Primary Care Provider Active Team Status: Inactive Member Role Status Dates Dr. Darian Gregorio MD Attending Provider Active Team Status: Active Member Role Status Dates Dr. Franki Young DO Primary Care Provider, Referrin g Provider Active Dr. Darian Gregorio MD Attending Provider, Other Provider Active Team Status: Inactive Member Role Status Dates Dr. Franki Young DO Primary Care Prov ider, Attending Provider, Referring Provider Active Team Status: Inactive Member Role Status Dates Dr. Franki Young DO Primary Care Provider, Referrin g Provider Active Dr. Darian Gregorio MD Attending Provider Active Team Status: Inactive Member Role Status Dates Dr. Franki Young DO Primary Care Provider, Attendin g Provider Active (unrecognized sect ion and content) No Status Records Found INFORMATION SOURCE (unrecogn ized section and content) DATE CREATED AUTHOR 07/07/2024 [facility] FOR RECORDS PERTAINING TO PATIENTS WHO ARE OR HAVE BEEN ENROLLED IN A CHEMICAL DEPENDENCY/SUBSTANCEABUSE PROGRAM, SOME INFORMATION MAY BE OMITTED. This clinical summary was aggregated from multiple sources. Caution should be exercised in using it in the provision of clinical care. This summary normalizes information from multiple sources, and as a consequence, information in this document may materially change the coding, format and clinical context of patient data. In addition, data may be omitted in some cases. CLINICAL DECISIONS SHOULD BE BASED ON THE PRIMARY CLINICAL RECORDS. This[facility]. provides no warranty or guarantee of the accuracy or completeness of information in this document.
[2024-12-25 10:57] LABS: BUN 9 mg/dL (4-19); Glucose 110 mg/dL (70-99)
[2024-12-25 10:58] LABS: AST(SGOT) 25 U/L (<=37); Albumin, Serum 4.3 g/dL (3.5-5.0); Alkaline Phosphatase 55 U/L (40-129); BUN/Creat Ratio 11.7 RATIO (10-20); Calcium,Total 9.4 mg/dL (7.6-11.0); Globulin 3.2 g/dL (2.2-4.2)
[2024-12-25 10:59] LABS: Alanine Aminotransfer ALT/SGPT 37 U/L (<=46); Anion Gap 10 (5-15); Carbon Dioxide 29.3 mmol/L (21.0-32.0); Chloride 99 mmol/L (98-108); Cholesterol 151 mg/dL (<=200); Potassium 4.6 mmol/L (3.3-5.1); Triglycerides 118 mg/dL; Very Low Density Lipoprotein 24 mg/dL (5-40)
[2024-12-25 11:00] LABS: cholesterol:hdl ratio screen 3.97
[2024-12-25 11:01] LABS: PSA,Total - Annual Screen 0.57 ng/mL (0.02-4.00)
[2024-12-25 11:06] LABS: Low Density Lipoprotein Calc. 89 mg/dL
[2024-12-25 11:10] LABS: Hematocrit 49.9 % (40-54); Hemoglobin 16.8 g/dL (13.0-16.5); Mean Corp Hgb Conc 33.7 g/dL (32-36); Mean Corpuscular Volume 96.3 fL (80-94); Mean Platelet Vol. 9.1 fl (6.2-12.0); Platelet Count 243 K/mm3 (150-450); RBC Distribution Width CV 12.8 % (11.6-14.6); RBC Distribution Width SD 45.5 fl (35.1-43.9); Red Blood Count 5.18 M/mm3 (4.6-6.2); White Blood Count 9.3 K/mm3 (4.4-11.0)
[2024-12-25 11:12] LABS: Creatinine, Urine (random) 64.90 mg/dL (39.00-259.00); Protein, Urine (Random) 7.7 mg/dL (0.0-12.0); Protein:Creat Ratio 110 mg/g CRE (0-200)
== END | disposition home or self-care (01) ==
LOC: LABSPEC 10:43
PROVIDERS: PCP Student in an Organized Health Care Education/Training Program; Visit Provider Student in an Organized Health Care Education/Training Program
DX: Z13.6 Encounter for screening for cardiovascular disorders (principal); E11.29 Type 2 diabetes mellitus with other diabetic kidney complication; Z12.5 Encounter for screening for malignant neoplasm of prostate
CPT/HCPCS: 36415; 80053; 80061; 82570; 83036; 84153; 84156; 84443; 85027; G0103